=== PATIENT | male | born 1995 | race African-American/Black ===

== ENCOUNTER 2016-05-16 15:55 | Emergency (ER) | payer SELFPAY ==
[~2016-05-16] VITALS: Ht 167.6 cm; Wt 74.8 kg
[2016-05-16 15:57] VITALS: BP 131/75
--- NOTE | 2016-05-16 16:14 | PHYS DOC ---
Past Medical History Past Medical History: No Pertinent History Past Surgical History: No Surgical History Alcohol Use: None Drug Use: Marijuana Adult General Chief Complaint Chief Complaint: SEXUALLY TRANSMITTED DISEASE HPI HPI Patient is a 20 year old male who presents with STD concerns. Patient states he received an anonymous call from a female friend who stated she was tested positive for chlamydia. Patient is here to be tested and treated. Patient denies any symptoms. Review of Systems Review of Systems Constitutional: Denies fever or chills [] Eyes: Denies change in visual acuity, redness, or eye pain [] HENT: Denies nasal congestion or sore throat [] Respiratory: Denies cough or shortness of breath [] Cardiovascular: No additional information not addressed in HPI [] GI: Denies abdominal pain, nausea, vomiting, bloody stools or diarrhea [] : STD concern Musculoskeletal: Denies back pain or joint pain [] Integument: Denies rash or skin lesions [] Neurologic: Denies headache, focal weakness or sensory changes [] Endocrine: Denies polyuria or polydipsia [] Allergies Allergies Allergies Coded Allergies Type Severity Reaction Last Updated Verified No Known Drug Allergies 03/13/13 No Physical Exam Physical Exam Constitutional: Well developed, well nourished, no acute distress, non-toxic appearance. [] HENT: Normocephalic, atraumatic, bilateral external ears normal, oropharynx moist, no oral exudates, nose normal. [] Eyes: PERRLA, EOMI, conjunctiva normal, no discharge. [] Neck: Normal range of motion, no tenderness, supple, no stridor. [] Cardiovascular:Heart rate regular rhythm, no murmur [] Lungs & Thorax: Bilateral breath sounds clear to auscultation [] Abdomen: Bowel sounds normal, soft, no tenderness, no masses, no pulsatile masses. [] Skin: Warm, dry, no erythema, no rash. [] Back: No tenderness, no CVA tenderness. [] Extremities: No tenderness, no cyanosis, no clubbing, ROM intact, no edema. [] Neurologic: Alert and oriented X 3, normal motor function, normal sensory function, no focal deficits noted. [] Psychologic: Affect normal, judgement normal, mood normal. [] Current Patient Data Vital Signs Vital Signs Date Time Temp Pulse Resp B/P Pulse Ox O2 Delivery O2 Flow Rate FiO2 05/16/16 15:57 98.3 89 16 97 Room Air 98.3 EKG EKG [] Radiology/Procedures Radiology/Procedures [] Course & Med Decision Making Course & Med Decision Making Pertinent Labs and Imaging studies reviewed. (See chart for details) Patient is in the ED for STD concern. He was treated with Flagyl Rocephin and azithromycin and urine was sent to lab. Educated safe sex practices especially the need to use protection. Dragon Disclaimer Dragon Disclaimer This electronic medical record was generated, in whole or in part, using a voice recognition dictation system. Departure Departure Impression: Primary Impression: Concern about STD in male without diagnosis Disposition: HOME, SELF-CARE Condition: STABLE Referrals: JIM BOONE (PCP) Follow-up with your own doctor or the health department as needed Patient Instructions: Sexually Transmitted Disease Additional Instructions: You were seen for STD concern. You were tested, the results will come in the next 3-4 days. We will call you if the results are positive if negative we do not call. Use protection at all times. Please contact all your partners and let them know you were treated and ask them to seek treatment too. BEATRIZ MEEK APRN May 16, 2016 16:14
[2016-05-16 16:37] LABS: BILIRUBIN,URINE NEGATIVE (NEG); GLUCOSE,URINE NEGATIVE (NEG); NITRITE,URINE NEGATIVE (NEG); PH,URINE 6.5; PROTEIN,URINE NEGATIVE (NEG-TRACE)
[2016-05-16] MEDS ORDERED: METRONIDAZOLE 500 MG TABLET. PO ONE (16:45)
[2016-05-16] MEDS ORDERED: AZITHROMYCIN 250 MG TABLET PO ONE (16:45)
[2016-05-16] MEDS ORDERED: CEFTRIAXONE IM 250 MG VIAL. IM ONE (16:45)
[2016-05-16 17:37] LABS: BACTERIA,URINE 0 /HPF (0-FEW); RBC,URINE 0 /HPF (0-2); SQUAMOUS EPITHELIAL CELL,UR OCC /LPF
== END 2016-05-16 16:37 | disposition home or self-care (01) ==
LOC: ER 15:55
DX: Z11.3 Encounter for screening for infections with a predominantly sexual mode of transmission (principal); F12.10 Cannabis abuse, uncomplicated
CPT/HCPCS: 81001; 96372; 99283; J0696; Q0144

== ENCOUNTER 2019-09-12 23:08 | Emergency (ER) | payer SELFPAY ==
[~2019-09-12] VITALS: Ht 167.6 cm; Wt 96.0 kg
[2019-09-12 23:20] VITALS: BP 164/86
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
[2019-09-13] MEDS ORDERED: CYCL5TAB PO (00:23)
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
== END 2019-09-13 00:30 | disposition home or self-care (01) ==
LOC: ER 23:08
DX: M54.5 Low back pain (principal); M54.6 Pain in thoracic spine; G89.11 Acute pain due to trauma; F17.200 Nicotine dependence, unspecified, uncomplicated; F12.90 Cannabis use, unspecified, uncomplicated; V89.2XXA Person injured in unspecified motor-vehicle accident, traffic, initial encounter; Y93.89 Activity, other specified; Y92.413 State road as the place of occurrence of the external cause; Y99.8 Other external cause status
CPT/HCPCS: 72072; 72100; 99284